=== PATIENT | female | born 1965 | race African-American/Black ===

== ENCOUNTER 2021-12-22 09:14 | Emergency (ER) | payer BC, MEDICAID ==
[~2021-12-22] VITALS: Ht 167.6 cm; Wt 77.0 kg
[~2021-12-22 09:14] MED LIST: ASPI-785; EPI PEN; LISINOPRIL
[2021-12-22] MEDS ORDERED: IBUPROFEN 800MG TABLET PO ONE (09:30)
[2021-12-22 09:37] VITALS: BP 157/95
[2021-12-22] MEDS ORDERED: HYDR-4001 MT (10:47)
[2021-12-22] MEDS ORDERED: IBUP-2029 MT (10:47)
== END 2021-12-22 10:59 | disposition home or self-care (01) ==
LOC: ER 09:19
DX: M25.561 Pain in right knee (principal); Z98.890 Other specified postprocedural states
CPT/HCPCS: 73562; 73590; 93971; 99284; L1830